=== PATIENT | female | born 1995 | race Hispanic/Latino ===

== ENCOUNTER 2021-10-14 11:12 | Day surgery (SDC) | payer OTHER ==
[2021-10-14 12:11] VITALS: BMI 42.0
[2021-10-14] MEDS ORDERED: hydrALAZINE 20 MG/ML VIAL SLOW IVP PRN (12:38)
[2021-10-14] MEDS ORDERED: Ondansetron PF 4 MG/2 ML Vial IVP PRN (12:38)
[2021-10-14] MEDS ORDERED: Lactated Ringer's 1,000 ML IV SCH (12:45)
[2021-10-14 13:13] LABS: #Eosinphils 0.1 10x3/uL (0.0-0.5); #Monocytes 0.4 10x3/uL (0.0-1.1); #Neutrophils 6.7 10x3/uL (1.5-8.4); %Basophils 0.2 % (0.0-2.0); %Eosinophils 1.3 % (0.0-6.0); %Monocytes 4.5 % (0.0-10.0); %Neutrophils 77.7 % (40.0-75.0); Hemoglobin 9.7 g/dL (12.0-15.5); Mean Corpuscular HGB CONC 33.1 g/dL (32.0-36.0); Mean Corpuscular Hemoglobin 27.2 pg (27.0-33.0); Mean Corpuscular Volume 82.3 fl (81.6-98.3); Mean Platelet Volume 9.4 fl (7.4-10.4); Platelet Count 288 10x3/uL (150-450); RBC Distribution Width 15.5 % (11.5-14.5); Red Blood Cell (RBC) Count 3.56 10x6/uL (3.90-5.03); White Blood Cell (WBC) Count 8.7 10x3/uL (3.5-10.5)
[2021-10-14 13:18] LABS: Bilirubin Neg (Negative); Blood, Urine Negative (Negative); Clarity Clear (Clear); Glucose, Urine (Dipstick) Normal (Negative); Ketone, Urine Negative (Negative); Leukocyte Negative (Negative); Nitrite Negative (Negative); Protein, Urine (Dipstick) Negative (Neg-Trace); Urobilinogen Normal mg/dL (Less than 2)
[2021-10-14 13:20] LABS: Urine Culture Reflex No No
[2021-10-14 13:25] LABS: ALT (SGPT) 9 U/L (8-55); AST (SGOT) 9 U/L (5-34); Albumin 3.7 g/dL (3.5-5.0); Alkaline Phosphatase 71 U/L (40-110); Anion Gap 13 mmol/L (10-20); BUN (Urea Nitrogen) 8 mg/dL (7.0-18.7); Bilirubin, Total 0.2 mg/dL (0.2-1.2); Calc. Creatinine Clearance 232 mL/min (70-130); Calcium 8.9 mg/dL (7.8-10.44); Carbon Dioxide 20 mmol/L (22-29); Chloride 106 mmol/L (98-107); Globulin 3.2 g/dL (2.4-3.5); Glucose 81 mg/dL (70-105); Potassium 4.1 mmol/L (3.5-5.1); Protein, Total 6.9 g/dL (6.0-8.3); Sodium 135 mmol/L (136-145)
[2021-10-14 13:27] LABS: Bacteria/HPF Rare-Few HPF (None Seen); RBC/HPF None Seen HPF (0-3); Squamous Epithelial 0-3 HPF (0-3); WBC/HPF 0-3 HPF (0-3)
[2021-10-14 18:45] LABS: SARS-CoV-2 NAA Rapid Test Not Detected (NotDetected)
== END 2021-10-14 19:25 | disposition home or self-care (01) ==
LOC: CSHLD/OP 11:12
PROVIDERS: ATTEND Obstetrics & Gynecology
DX: O21.2 Late vomiting of pregnancy (principal); O99.891 Other specified diseases and conditions complicating pregnancy; R10.32 Left lower quadrant pain; Z3A.26 26 weeks gestation of pregnancy; Z20.822 Contact with and (suspected) exposure to COVID-19
CPT/HCPCS: 74181; 80053; 81001; 85025; 96360; 96374; 99283; J2405; U0002

== ENCOUNTER 2022-01-10 08:49 | Outpatient (CLI) | payer OTHER ==
[2022-01-10 23:05] LABS: SARS-CoV-2 PCR by NAA Not Detected (NotDetected)
== END 2022-01-10 08:50 | disposition home or self-care (01) ==
LOC: CSHLAB 08:49
PROVIDERS: ATTEND Obstetrics & Gynecology
DX: Z20.822 Contact with and (suspected) exposure to COVID-19 (principal)
CPT/HCPCS: U0003; U0005

== ENCOUNTER 2022-01-14 05:30 | Inpatient (IN) | payer OTHER ==
[2022-01-14 06:29] VITALS: BMI 44.9
[2022-01-14] MEDS: Lactated Ringer's 1,000 ML IV SCH ×2 (06:30→09:07)
[2022-01-14] MEDS ORDERED: ePHEDrine Sulfate 50 MG/10 ML VIAL ONE (08:00)
[2022-01-14] MEDS ORDERED: Bupivacaine/Epinephrine 0.25% 30 ML VIAL ONE (08:00)
[2022-01-14] MEDS ORDERED: Bupivacaine HCl 0.5%/Epinephrine 1:200,000/PF 30 ml Vial ONE (08:00)
[2022-01-14] MEDS ORDERED: Promethazine HCl 25 MG/ML VIAL IM PRN (08:06)
[2022-01-14] MEDS ORDERED: Ibuprofen 800 MG TAB PO PRN (08:06)
[2022-01-14] MEDS ORDERED: Lidocaine 1% (PF) 30 ML VIAL SC PRN (08:06)
[2022-01-14] MEDS ORDERED: Carboprost 250 MCG/ML AMP IM PRN (08:06)
[2022-01-14] MEDS ORDERED: Methylergonovine 0.2 MG/ML VIAL IM PRN (08:06)
[2022-01-14] MEDS ORDERED: Butorphanol Tartrate 1 MG/ML VIAL SLOW IVP PRN (08:06)
[2022-01-14] MEDS ORDERED: Misoprostol 200 MCG TAB PR PRN (08:06)
[2022-01-14] MEDS ORDERED: Docusate 100 MG CAP PO PRN (08:06)
[2022-01-14] MEDS ORDERED: Ondansetron PF 4 MG/2 ML Vial IVP PRN (08:06)
[2022-01-14] MEDS ORDERED: HYDROcodone/Acetaminophen 5/325 mg Tablet PO PRN (08:06)
[2022-01-14] MEDS ORDERED: Diphenoxylate HCl/Atropine Tablet PO PRN ×2 (08:06)
[2022-01-14] MEDS ORDERED: Acetaminophen 500 MG TAB PO PRN (08:06)
[2022-01-14] MEDS ORDERED: hydrALAZINE 20 MG/ML VIAL SLOW IVP PRN (08:06)
[2022-01-14] MEDS ORDERED: NS w/ Oxytocin 30 units 500 ML IV SCH ×2 (08:15)
[2022-01-14 08:23] LABS: Hemoglobin 10.3 g/dL (12.0-15.5); Mean Corpuscular HGB CONC 32.4 g/dL (32.0-36.0); Mean Corpuscular Hemoglobin 25.6 pg (27.0-33.0); Mean Corpuscular Volume 78.9 fl (81.6-98.3); Platelet Count 332 10x3/uL (150-450); Red Blood Cell (RBC) Count 4.03 10x6/uL (3.90-5.03); White Blood Cell (WBC) Count 7.9 10x3/uL (3.5-10.5)
[2022-01-14 08:51] LABS: Hep B Surf Ag Non-Reactive S/CO (NonReactive)
[2022-01-14 08:52] LABS: Syphilis Antibody Nonreactive (Nonreactive); Syphilis Antibody Index 0.05 S/CO (<1.00 Non-Reactive)
[2022-01-14] MEDS: Misoprostol 100 MCG TAB PO PRN ×2 (09:08→13:51)
[2022-01-14 11:29] LABS: HIV (1/2) Antibody/Antigen Non-Reactive (NonReactive); HIV 1/2 INDEX 0.07 S/CO (<1.00)
[2022-01-14 20:28] LABS: Chlamydia by PCR Not Detected (NotDetected); GC by PCR Not Detected (NotDetected)
[2022-01-14] MEDS ORDERED: Fentanyl 2 mcg/Bup 0.1% Cadd 100 ML ONE (22:54)
[2022-01-15] MEDS ORDERED: Lactated Ringer's 500 ML IV PRN (00:01)
[2022-01-15] MEDS ORDERED: diphenhydrAMINE 50 MG/ML VIAL IVP PRN (00:01)
[2022-01-15] MEDS ORDERED: Acetaminophen 325 MG TAB PO PRN (00:01)
[2022-01-15] MEDS ORDERED: Promethazine HCl 25 MG/ML VIAL IM PRN ×2 (00:01→17:51)
[2022-01-15] MEDS ORDERED: ePHEDrine Sulfate 50 MG/10 ML VIAL SLOW IVP PRN (00:01)
[2022-01-15] MEDS ORDERED: Naloxone HCl 0.4 mg/ml Vial IVP PRN ×2 (00:01)
[2022-01-15] MEDS ORDERED: Hydrocerin (Eucerin) Cream 120 gm Jar TOP PRN (00:01)
[2022-01-15] MEDS ORDERED: Ondansetron PF 4 MG/2 ML Vial IVP PRN ×2 (00:01→17:51)
[2022-01-15] MEDS ORDERED: Communication Order-Pharmacy FS SCH (00:15)
[2022-01-15] MEDS ORDERED: Fentanyl 2 mcg/Bup 0.1% Cadd 100 ML ONE (07:39)
[2022-01-15] MEDS: Fentanyl 2 mcg/Bupivacaine 0.1% Cassette 100 ML EPIDURAL SCH ×2 (07:39)
[2022-01-15] MEDS ORDERED: PHENYLEPHRINE-NS 100 MCG/ML 10 ML SYRINGE ONE (08:51)
[2022-01-15] MEDS ORDERED: ceFAZolin 2 GM/Dextrose 50 ML IVPB ONE (11:49)
[2022-01-15] MEDS ORDERED: Acetaminophen 500 MG TAB PO SCH (12:00)
[2022-01-15] MEDS ORDERED: ceFAZolin 2 GM/Dextrose 50 ML 2 GM in Premix Bag 1 BAG IVPB SCH ×2 (12:00→20:00)
[2022-01-15] MEDS ORDERED: Famotidine/PF 20 mg/2ml Vial SLOW IVP PRN (12:08)
[2022-01-15] MEDS ORDERED: Bicitra 30 ML UDCUP PO PRN (12:08)
[2022-01-15] MEDS ORDERED: Morphine PF 10 MG/10 ML VIAL ONE (12:12)
[2022-01-15] MEDS ORDERED: Oxytocin 10 UNITS/ML VIAL ONE (12:13)
[2022-01-15] MEDS ORDERED: Lidocaine 2% MPF 10 ML AMP (For Epidural Use) ONE (12:14)
[2022-01-15] MEDS ORDERED: Dexamethasone 4 mg/ml Vial ONE (12:23)
[2022-01-15] MEDS ORDERED: Ondansetron PF 4 MG/2 ML Vial ONE (12:23)
[2022-01-15] MEDS ORDERED: Azithromycin 500 MG in Sodium Chloride 0.9% 250 ML 250 ML IVPB SCH (13:00)
[2022-01-15] MEDS ORDERED: Midazolam HCl 2 mg/2 ml Vial ONE (13:04)
[2022-01-15] MEDS ORDERED: Fentanyl 100 MCG/2 ML VIAL ONE (13:07)
[2022-01-15] MEDS ORDERED: Methylergonovine 0.2 MG/ML VIAL ONE ×2 (13:10→13:13)
[2022-01-15] MEDS ORDERED: Misoprostol 200 MCG TAB PR PRN (17:51)
[2022-01-15] MEDS ORDERED: Methylergonovine 0.2 MG/ML VIAL IM PRN (17:51)
[2022-01-15] MEDS ORDERED: HYDROcodone/Acetaminophen 5/325 mg Tablet PO PRN (17:51)
[2022-01-15] MEDS ORDERED: Zolpidem Tartrate 5 MG TAB PO PRN (17:51)
[2022-01-15] MEDS ORDERED: Lanolin Ointment 7 GM TUBE TOP PRN (17:51)
[2022-01-15] MEDS ORDERED: diphenhydrAMINE 25 MG CAP PO PRN (17:51)
[2022-01-15] MEDS ORDERED: NS w/ Oxytocin 30 units 500 ML IV SCH (17:51)
[2022-01-15] MEDS ORDERED: Bisacodyl 10 MG SUPP PR PRN (17:51)
[2022-01-15] MEDS ORDERED: hydrALAZINE 20 MG/ML VIAL SLOW IVP PRN (17:51)
[2022-01-15] MEDS: Ketorolac Tromethamine 30 MG/ML VIAL IVP SCH (20:44)
[2022-01-15] MEDS: Enoxaparin Sodium 40 MG/0.4 ML SYRINGE SC SCH (20:45)
[2022-01-15] MEDS: Lactated Ringer's 1,000 ML IV SCH (21:19)
[2022-01-15] MEDS ORDERED: Ibuprofen 800 MG TAB PO SCH (22:00)
[2022-01-15] MEDS ORDERED: Ketorolac Tromethamine 30 MG/ML VIAL IVP SCH (23:59)
[2022-01-16 04:14] LABS: Hemoglobin 7.6 g/dL (12.0-15.5); Mean Corpuscular HGB CONC 32.6 g/dL (32.0-36.0); Mean Corpuscular Hemoglobin 26.1 pg (27.0-33.0); Mean Corpuscular Volume 80.1 fl (81.6-98.3); Mean Platelet Volume 9.7 fl (7.4-10.4); Platelet Count 234 10x3/uL (150-450); RBC Distribution Width 16.2 % (11.5-14.5); Red Blood Cell (RBC) Count 2.91 10x6/uL (3.90-5.03); White Blood Cell (WBC) Count 15.2 10x3/uL (3.5-10.5)
[2022-01-16] MEDS: Ketorolac Tromethamine 30 MG/ML VIAL IVP SCH ×4 (05:18→22:53)
[2022-01-16] MEDS: HYDROcodone/Acetaminophen 5/325 mg Tablet PO PRN ×3 (08:42→20:07)
[2022-01-16] MEDS: Prenatal Vitamin 1 TAB PO SCH (08:43)
[2022-01-16] MEDS ORDERED: Boostrix 0.5 ML (Tdap) VIAL IM ONE (17:51)
[2022-01-16] MEDS: Enoxaparin Sodium 40 MG/0.4 ML SYRINGE SC SCH (20:07)
[2022-01-17] MEDS: Ibuprofen 800 MG TAB PO SCH ×3 (06:38→21:48)
[2022-01-17] MEDS: HYDROcodone/Acetaminophen 5/325 mg Tablet PO PRN ×2 (09:18→17:52)
[2022-01-17] MEDS: Prenatal Vitamin 1 TAB PO SCH (09:19)
[2022-01-17 09:32] LABS: Hemoglobin 7.4 g/dL (12.0-15.5); MDiff Complete? YES; Mean Corpuscular HGB CONC 32.6 g/dL (32.0-36.0); Mean Corpuscular Hemoglobin 26.1 pg (27.0-33.0); Mean Corpuscular Volume 79.9 fl (81.6-98.3); Mean Platelet Volume 9.5 fl (7.4-10.4); Platelet Count 230 10x3/uL (150-450); RBC Distribution Width 16.3 % (11.5-14.5); Red Blood Cell (RBC) Count 2.84 10x6/uL (3.90-5.03)
[2022-01-17 11:22] LABS: Lymphocytes 11 % (21-51); Nucleated RBC 1 % (0)
[2022-01-17 11:24] LABS: Monocytes 4 % (0-10); Neutrophil 85 % (42-75); Platelet Morphology Comment Appears Adequate
[2022-01-17 11:26] LABS: Ovalocytes SLIGHT = 2-5 cells (100X) (0-1/hpf)
[2022-01-17] MEDS: Enoxaparin Sodium 40 MG/0.4 ML SYRINGE SC SCH (21:47)
[2022-01-17] MEDS: Simethicone Chewable 80 MG TAB PO PRN (21:49)
[2022-01-18] MEDS: Ibuprofen 800 MG TAB PO SCH (05:55)
[2022-01-18] MEDS: Simethicone Chewable 80 MG TAB PO PRN (05:55)
[2022-01-18] MEDS: HYDROcodone/Acetaminophen 5/325 mg Tablet PO PRN ×2 (05:56→10:30)
[2022-01-18 07:59] VITALS: BP 106/62; TEMP 98.3
[2022-01-18] MEDS: Prenatal Vitamin 1 TAB PO SCH (08:57)
[2022-01-18] MEDS ORDERED: Measles/Mumps/Rubella 10 MCG/0.5 ML VIAL SC ONE (17:51)
[2022-01-18] MEDS ORDERED: Varicella virus, LIVE 0.5 ML VIAL SC ONE (17:51)
== END 2022-01-18 11:00 | disposition home or self-care (01) | DRG 786 ==
LOC: CSHLD 05:48 → CSHPED 01-15 18:20
PROVIDERS: ADMIT Obstetrics & Gynecology; ATTEND Obstetrics & Gynecology
PROC: 10D00Z1 Extraction of Products of Conception, Low, Open Approach (ICD-10-PCS; principal; 2022-01-15)
PROC: 3E033VJ Introduction of Other Hormone into Peripheral Vein, Percutaneous Approach (ICD-10-PCS; 2022-01-15)
PROC: 3E0P7VZ Introduction of Hormone into Female Reproductive, Via Natural or Artificial Opening (ICD-10-PCS; 2022-01-15)
DX: O42.92 Full-term premature rupture of membranes, unspecified as to length of time between rupture and onset of labor (principal); O41.1230 Chorioamnionitis, third trimester, not applicable or unspecified; O99.892 Other specified diseases and conditions complicating childbirth; Z3A.39 39 weeks gestation of pregnancy; Z37.0 Single live birth; R00.0 Tachycardia, unspecified; O76 Abnormality in fetal heart rate and rhythm complicating labor and delivery
CPT/HCPCS: 36415; 51702; 85025; 85027; 86780; 86850; 86900; 86901; 87340; 87389; 87491; 87591; 88307; 88312; 93005; 93010; J0456; J0595; J0690; J1100; J1650; J1885; J2210; J2250; J2274; J2405; J2550; J2590; J3010; J7050; J7120